=== PATIENT | male | born 1965 | race Caucasian/White ===

== ENCOUNTER → 2021-07-13 | Outpatient (CLI) | payer OTHER ==
--- NOTE | 2021-07-13 10:05 | RAD ---
XR CERVICAL SPINE 4-5V History: Neck pain after injury. Comparison: None. Technique: 6 views of the cervical spine. Findings: There are 7 non-rib bearing cervical vertebral segments. There is no evidence of fracture. No destructive osseous lesions are seen. Alignment is normal. Mild multilevel cervical facet hypertrophy. Advanced disc space narrowing at C6-C7 with circumferential osteophytes. Mild foraminal narrowing on the left at C3-C4 and on the right at C4-C5. Soft tissues are unremarkable. IMPRESSION: 1. Cervical spondylosis without acute osseous abnormality. Electronically signed by: Ramon Summers MD (07/13/2021 10:02 AM) [id number]
== END ==
LOC: RAD 09:24
PROVIDERS: ATTEND Physician Assistant
DX: M47.812 Spondylosis without myelopathy or radiculopathy, cervical region (principal); M48.02 Spinal stenosis, cervical region; M25.78 Osteophyte, vertebrae
CPT/HCPCS: 72050